=== PATIENT | male | born 1940 | race Caucasian/White ===

== ENCOUNTER 2016-06-06 09:33 | Inpatient (IN) ==
[2016-06-06] MEDS ORDERED: SODIUM CHLORIDE 0.9% 1,000 ML IV STA (09:58)
--- NOTE | 2016-06-06 10:03 | Emergency Department Note ---
IMalcolm Meredith, am scribing for, and in the presence of, Ang Fajardo MD 10: 01. Tana Edgar James D, MD, personally performed the services described in this documentation, ascribed by Maria Esther Fowler in my presence, and it is both accurate and complete . Arrival - Arrival Chief Complaint: Weakness Stated Complaint: DEHYRDATED SENT BY [facility] ED Nursing Triage Note: PT SENT BY DR WEISS FOR EVAL FOR WEAKNESS AND DEHYDRATION. REPORTS DECREASED PO INTAKE ALL WEEK. REPORTS VERY LITTLE URINE OUTPUT AND CONSTIPATION X1 WEEK. Mode of Arrival: Wheelchair Limitations: No Limitations Source: Patient, Old Records Reviewed, RN Notes Reviewed Time Seen by Provider: 06/06/16 09:58 - History of Present Illness HPI Narrative: Pt is a 75 y/o white male sent to the ED from Dr. Weiss's office for further evaluation of generalized weakness and dehydration. states that pt has had decreased PO intake, decreased urine output, and constipation for the past week. Pt has had difficulty swallowing and often coughs while trying to eat. states he has had significant weight loss. He has a history of anxiety, TIA , Parkinson's Disease, thyroid disorder, asthma, bronchitis, COPD, prostate cancer, GI bleed, Gan's esophagus, GERD, and right arm contracture. Onset (ago): week(s) Allergies/Adverse Reactions: Allergies Allergy/AdvReac Type Severity Reaction Status Date / Time metoclopramide [From Reglan] Allergy Intermediate RASH, itch Verified 06/06/16 09:46 Amoxicillin [From Augmentin] Allergy Unknown/Unable Verified 06/06/16 09:46 to obtain clavulanic acid Allergy Unknown/Unable Verified 06/06/16 09:46 [From Augmentin] to obtain levofloxacin [From Levaquin] AdvReac Severe ruptured Verified 06/06/16 09:46 bilat achilles tendon Home Medications: Home Medications Medication Instructions Recorded Confirmed Type Benztropine Tab [Cogentin Tab] 1 mg PO BID 09/10/14 06/06/16 History Cholecalciferol [Vitamin D3] 1,000 unit PO DAILY 09/10/14 06/06/16 History Cyanocobalamin Tab [Vitamin B12 1,000 mcg PO DAILY 09/10/14 06/06/16 History Tab] L.acidoph & Paracasei,B.lactis 1 each PO DAILY 09/10/14 06/06/16 History [Probiotic] Pantoprazole Tab [Protonix Tab] 40 mg PO DAILY 09/10/14 06/06/16 History guaiFENesin ER TAB [Mucinex] 600 mg PO DAILY 09/10/14 06/06/16 History Albuterol Neb [Proventil Neb] 2.5 mg RESP TX BID 09/22/14 06/06/16 History Azithromycin 250 mg PO MOWEFR 09/22/14 06/06/16 History Budesonide/Formoterol 160-4.5 2 puff INH BID 09/22/14 06/06/16 History [Symbicort 160-4.5] Aspirin EC Tab 81 mg PO DAILY 12/22/15 06/06/16 History Citalopram [CeleXA] 40 mg PO DAILY 06/06/16 06/06/16 History Levothyroxine Tab [Synthroid Tab] 100 mcg PO DAILY@0700 06/06/16 06/06/16 History Montelukast Tab [Singulair Tab] 10 mg PO DAILY 06/06/16 06/06/16 History Multivitamin [Multivitamins] 1 each PO DAILY 06/06/16 06/06/16 History Trihexyphenidyl [Artane] 2 mg PO TID 06/06/16 06/06/16 History Review of System - Review of System 12 point system: reviewed and no additional remarkable complaints except as stated - Review of System Constitutional: Present: as per HPI, weakness, weight loss Gastrointestinal: Present: as per HPI, constipation, other (decreased PO intake ; difficulty swallowing) Genitourinary male: Present: as per HPI, other (decreased urinary output) Medical,Surgical,& Family Hx - Medical History Psychological: History of: Anxiety Disorders Neurology: History of: Parkinson's Disease, TIA No history of: Seizures HEENT: History of: Ear Problem (HEARING AIDES), Eye Problem (cataracts) Endocrine: History of: Thyroid Disorder Respiratory: History of: Asthma, Bronchitis (bronchiectisis), COPD, Respiratory Problems (DR. RIVERS) Genitourinary: History of: Prostate Problems (cancer), Genitourinary Cancer ( PROSTATE) Gastrointestinal: History of: GERD, Gastrointestinal Bleed, GI Problems (HX OF GAN'S ESOPHAGUS, dysphagia) No history of: Hepatitis, Liver Problems Musculoskeletal: History of: Musculoskeletal Problems (right arm contractues,) Hematology: No history of: Anemia, Blood Transfusion Reaction Other: History of: Cancer (prostate) No history of: Anesthesia Reactions - Surgical History Cardiac Surgeries: Patient Denies: Cardiac Catheterization Thoracic Surgeries: Patient denies;: Organ Transplant HEENT Surgeries: Surgical HX of: Eye Surgery (LT CATARACT/FOR RT 11/15/14) Patient denies: Thyroid Surgery, Tonsilectomy & Adenoidectomy Abdominal Surgeries: Surgical HX of: Abdominal Surgery (patient's had 2 Rodolfo fundoplication's.), Cholecystectomy, Colonoscopy, EGD Patient denies: Hernia Repair Reproductive Surgeries: Surgical HX of;: Genitourinary Surgery, Prostate Surgery Patient denies;: Vasectomy Orthopedic Surgeries: Patient denies;: Orthopedic Surgery - Family History Family History: Reports;: Family Heart Disease, Family Hypertension, Family Stroke - Social History Smoking Status: Never smoker Frequency of Alcohol Use: None Type of Drug Use: None Exam Physical Examination: GENERAL: This is an emaciated white male in no apparent distress. VITAL SIGNS: Temperature: 98.0, Pulse: 65, Respirations: 16, Blood pressure: 128 /71, O2 Saturation: 97 HEENT: Head is normocephalic and atraumatic. Pupils are equally round and reactive to light. Extraocular movement are intact. Temporal wasting and sunken orbits bilaterally. Dry mucous membranes. NECK: Neck is soft and supple without tenderness. There are no masses. There is no lymphadenopathy. LUNGS: Lungs are clear to auscultation bilaterally. Chest rises symmetrically. There is no chest wall tenderness. CV: Heart is regular rate and rhythm without murmurs, rubs, or gallops. ABDOMEN: Abdomen is soft, non-tender to palpation. There are no abnormal masses palpated. There is no organomegaly. Bowel sounds are present and active. SKIN: Skin is warm and dry. No rash. EXTREMITIES: Patient has full range of motion without tenderness. There is no pedal edema. NEUROLOGIC: Awake, alert, and oriented x4. Cranial nerves II through XII are grossly intact. 3 per second tremors and cog wheeling. PSYCHIATRIC: Normal affect. Normal mood. Vital Signs: Vital Signs Temperature 98.0 F 06/06/16 09:38 Pulse Rate 65 06/06/16 10:24 Respiratory Rate 20 06/06/16 10:24 Blood Pressure 130/75 06/06/16 10:24 O2 Sat by Pulse Oximetry 97 06/06/16 10:24 Course - Consultations Consultation #1: Discussed with hospitalist. Patient will be admitted to their service. Time: 11:41 Results - Labs CBC & BMP: 06/06/16 10:06 06/06/16 10:06 Lab Results: I have reviewed the patients labs Labs: Laboratory Tests 06/06/16 10:06 WBC 7.1 RBC 4.19 Hgb 13.6 L Hct 40.6 L Plt Count 209 MPV 9.4 L Lymph % (Auto) 19.0 L Laboratory Tests 06/06/16 06/06/16 10:06 10:06 Sodium 140 Potassium 4.4 Chloride 103 Carbon Dioxide 27 BUN 20 H Creatinine 0.80 BUN/Creatinine Ratio 25.00 H AST 54 H Total Protein 6.0 L Albumin 3.2 L Prealbumin 17.4 L Laboratory Tests 06/06/16 10:06 Urine pH 6.0 Ur Specific Ethan 1.017 Urine Ketones 20 Urine Blood Moderate Urine Urobilinogen < 2.0 H Urine RBC 48 Urine WBC <1 Ur Squamous Epith Cells Occasional Calcium Oxalate Crystal Occasional Urine Bacteria Occasional Urine Mucus Occasional - Diagnostic Findings Procedure: Chest x-ray: report reviewed by me (Exacerbation of airways disease, with underlying COPD. ) Disposition Clinical Impression: Parkinsons, Parkinson's disease dementia, Dehydration, Protein malnutrition Case discussed with: patient, patient's family Disposition: Still a Patient Condition: Stable Time of Disposition: 11:40
[2016-06-06 10:14] LABS: Basophils % 0.3 % (0.0-0.8); Eosinophils # 0.1 10*3/uL (0.0-0.87); Hematocrit 40.6 VOL% (42.0-52.0); Hemoglobin 13.6 GM/DL (14.0-18.0); Immature Granulocytes % 0.4 %; Immature Granulocytes Absolute 0.03 #; Lymphocytes # 1.4 10*3/uL (1.4-4.0); Mean Corpuscular HGB Conc 33.5 GM/DL (32-36); Mean Corpuscular Hemoglobin 33 PG (27-34); Mean Corpuscular Volume 96.9 FL (87-102); Mean Platelet Volume 9.4 FL (9.6-12.0); Monocytes # 0.7 10*3/uL (0.11-0.8); Monocytes % 9.2 % (1.7-12.7); Neutrophils # 4.9 10*3/uL (1.4-7.4); Neutrophils % 69.1 % (38.7-73.9); Platelet Count 209 T/CUMM (130-400); Red Blood Count 4.19 MC/CUMM (3.8-5.5); Red Cell Distribution Width 13.5 % (9.3-17.3); White Blood Count 7.1 T/CUMM (4-12)
--- NOTE | 2016-06-06 10:26 | CT Report ---
CT head/brain wo con Indication: Generalized weakness. CT BRAIN WITHOUT CONTRAST DLP: 9:15 mGy*cm Comparison: 09/10/2014. Date of admission: 06/06/2016. Technique: Axial noncontrast CT images of the brain were obtained. Findings: No acute hemorrhage, mass or mass effect. Generalized atrophy and patchy periventricular white matter hypodensity is present throughout both convexities. Cortical miugel-white junction and structures of the basal ganglia are well-defined. No bone lesions are shown. Internal auditory canals are symmetric. Mild sphenoid sinus disease is present. The other visualized sinuses and mastoid air cells are clear. Impression: No acute intracranial pathology. Generalized atrophy and changes consistent with microvascular disease. Minimal sphenoid sinus disease. No change from earlier. PROCEDURE INTERPRETED AT [facility] DEPARTMENT OF RADIOLOGY Final Report Signed by: Doc Mcgraw M.D.
--- NOTE | 2016-06-06 10:30 | XRay Report ---
XR chest 2V Indication: Generalized weakness. Chest 2 views: Comparison 06/30/2015. Heart size and mediastinal contours remain normal. Scattered calcified granulomata are unchanged as well. Lungs remain hyperinflated but there is a general increased interstitial prominence present diffusely, with areas of peribronchial thickening and cuffing. No focal pneumonia is seen at this time. Exaggerated thoracic kyphosis is stable. IMPRESSION: Exacerbation of airways disease, with underlying COPD. PROCEDURE INTERPRETED AT [facility] DEPARTMENT OF RADIOLOGY Final Report Signed by: Doc Mcgraw M.D.
[2016-06-06 10:50] LABS: Albumin 3.2 G/DL (3.4-5.0); Bilirubin,Total 0.6 MG/DL (0.2-1.0); Calcium 8.6 MG/DL (8.5-10.1); Osmolality,Calculated 280.4 MOS/KG (273-304); Potassium 4.4 MMOL/L (3.5-5.1)
[2016-06-06 11:01] LABS: Apearance,Urine CLEAR (Clear); Bacteria,Urine Occasional /HPF (Few); Bilirubin,Urine Negative (Negative); Blood, Urine Moderate mg/dL (Negative); Calcium Oxalate Crystals,Urine Occasional /HPF (Few); Glucose,Urine (UA) Negative (Negative); Ketones,Urine 20 mg/dL (Negative); Mucus,Urine Occasional /LPF (Occasional); Nitrite,Urine Negative (Negative); Protein,Urine Negative; RBC,Urine 48 /HPF (0-4); Squamous Epithelial Cell,Urine Occasional /HPF (0-10); Urine Color Yellow (Yellow); Urine Specific Gravity 1.017 (1.001-1.035); Urine Urobilinogen < 2.0 EU/DL (0.2-1.0); WBC,Urine <1 /HPF (0-6)
[2016-06-06] MEDS ORDERED: ONDANSETRON 4 MG/2 ML VIAL IV PRN (12:14)
--- NOTE | 2016-06-06 12:44 | Hospitalist History & Physical ---
Assessment and Plan - Time spent with patient Time spent with patient: Greater than 30 minutes (due to assessment, plan and documentation.) (1) Constipation Status: Acute Assessment and plan: admit to floor / NS at 75 cc/hr KUB Current Visit: Yes (2) Protein malnutrition Status: Acute Current Visit: Yes (3) Asthma Status: Acute Current Visit: No (4) Bronchiectasis Status: Acute Current Visit: No Qualifiers: Bronchiectasis type: with acute lower respiratory infection Qualified Code( s): J47.0 - Bronchiectasis with acute lower respiratory infection (5) Hypothyroidism Status: Acute Current Visit: No (6) Parkinsons disease Status: Chronic Current Visit: No History of Present Illness Chief complaint: sent from Dariel's office for dehydration. History of present illness: Mr. Lorenzo is a 75 year old male who was sent over from Dr. Vieira's office today for dehydration, constipation. History is obtained from his and sister in law. He has a past medical history significant for Parkinson's disease, TIA, tremor (unknown per if related to an old horse accident or his Parkinson's disease), asthma, bronchiectasis and COPD followed by Dr. Eugene Beck. He also has a hx of GERD and Gan's disease followed by Dr. Falcon. He is on Synthroid for hypothyroidism. PSH includes: anand fundoplication x 2, prostate cancer treated with surgery and bilateral cataract surgery. His and sister in law state that he has not been able to have a BM for about 1 week now. Mr. Lorenzo denies any abdominal pain, nausea or vomiting. No fever, no white count at this time. His electrolytes are normal at present. His states that he has not been eating/drinking good for "a while now" and that he has lost approximately 40 lbs in the past year and a half. They state that he sat on the toilet for hours yesterday trying to have a BM, to the point that his feet were swollen bilaterally. He doesn't speak much but will answer questions, when directly spoken to. Denies any blood in stool with last BM. CXR and Head CT were negative in ER. I have ordered a KUB and the report is pending at this time. We will admit and begin on 04/29 NS at 75 cc/ hr for hydration. He lives at home with his and requires assistance. Further plan and addendum to follow by Dr. Kalpana Mckeon. Home Medications Medication Instructions Recorded Confirmed Type Benztropine Tab [Cogentin Tab] 1 mg PO BID 09/10/14 06/06/16 History Cholecalciferol [Vitamin D3] 1,000 unit PO DAILY 09/10/14 06/06/16 History Cyanocobalamin Tab [Vitamin B12 1,000 mcg PO DAILY 09/10/14 06/06/16 History Tab] L.acidoph & Paracasei,B.lactis 1 each PO DAILY 09/10/14 06/06/16 History [Probiotic] Pantoprazole Tab [Protonix Tab] 40 mg PO DAILY 09/10/14 06/06/16 History guaiFENesin ER TAB [Mucinex] 600 mg PO DAILY 09/10/14 06/06/16 History Albuterol Neb [Proventil Neb] 2.5 mg RESP TX BID 09/22/14 06/06/16 History Azithromycin 250 mg PO MOWEFR 09/22/14 06/06/16 History Budesonide/Formoterol 160-4.5 2 puff INH BID 09/22/14 06/06/16 History [Symbicort 160-4.5] Aspirin EC Tab 81 mg PO DAILY 12/22/15 06/06/16 History Citalopram [CeleXA] 40 mg PO DAILY 06/06/16 06/06/16 History Levothyroxine Tab [Synthroid Tab] 100 mcg PO DAILY@0700 06/06/16 06/06/16 History Montelukast Tab [Singulair Tab] 10 mg PO DAILY 06/06/16 06/06/16 History Multivitamin [Multivitamins] 1 each PO DAILY 06/06/16 06/06/16 History Trihexyphenidyl [Artane] 2 mg PO TID 06/06/16 06/06/16 History Allergies Allergy/AdvReac Type Severity Reaction Status Date / Time metoclopramide [From Reglan] Allergy Intermediate RASH, itch Verified 06/06/16 09:46 Amoxicillin [From Augmentin] Allergy Unknown/Unable Verified 06/06/16 09:46 to obtain clavulanic acid Allergy Unknown/Unable Verified 06/06/16 09:46 [From Augmentin] to obtain levofloxacin [From Levaquin] AdvReac Severe ruptured Verified 06/06/16 09:46 bilat achilles tendon Medical,Surgical,& Family Hx - Medical History Psychological: History of: Anxiety Disorders Neurology: History of: Parkinson's Disease, TIA No history of: Seizures HEENT: History of: Ear Problem (HEARING AIDES), Eye Problem (cataracts) Endocrine: History of: Thyroid Disorder Respiratory: History of: Asthma, Bronchitis (bronchiectisis), COPD, Respiratory Problems (DR. BECK) Genitourinary: History of: Prostate Problems (cancer), Genitourinary Cancer ( PROSTATE) Gastrointestinal: History of: GERD, Gastrointestinal Bleed, GI Problems (HX OF GAN'S ESOPHAGUS, dysphagia) No history of: Hepatitis, Liver Problems Musculoskeletal: History of: Musculoskeletal Problems (right arm contractues,) Hematology: No history of: Anemia, Blood Transfusion Reaction Other: History of: Cancer (prostate) No history of: Anesthesia Reactions - Surgical History Cardiac Surgeries: Patient Denies: Cardiac Catheterization Thoracic Surgeries: Patient denies;: Organ Transplant HEENT Surgeries: Surgical HX of: Eye Surgery (LT CATARACT/FOR RT 11/15/14) Patient denies: Thyroid Surgery, Tonsilectomy & Adenoidectomy Abdominal Surgeries: Surgical HX of: Abdominal Surgery (patient's had 2 Rodolfo fundoplication's.), Cholecystectomy, Colonoscopy, EGD Patient denies: Hernia Repair Reproductive Surgeries: Surgical HX of;: Genitourinary Surgery, Prostate Surgery Patient denies;: Vasectomy Orthopedic Surgeries: Patient denies;: Orthopedic Surgery - Family History Family History: Reports;: Family Heart Disease, Family Hypertension, Family Stroke - Social History Smoking Status: Never smoker Frequency of Alcohol Use: None Type of Drug Use: None Marital Status: Lives With:: Spouse Functional capacity: uses cane/walker - Constitutional Constitutional: Absent: chills, fever(s), weakness - EENT Eyes: Absent: blurry vision, diplopia Ears: Absent: decreased hearing, tinnitus Nose, mouth and throat: Present: dysphagia. Absent: headache(s) - Cardiovascular Cardiovascular: Present: edema (now resolved, had yesterday). Absent: chest pain at rest, dyspnea on exertion - Respiratory Respiratory: Absent: dyspnea, hemoptysis - Gastrointestinal Gastrointestinal: Present: constipation. Absent: abdominal pain, melena, nausea , vomiting - Genitourinary Genitourinary: Absent: difficulty urinating, flank pain, hematuria - Musculoskeletal Musculoskeletal: Absent: back pain, joint swelling - Neurological Neurological: Absent: confusion, dizziness - Psychiatric Psychiatric: Absent: anxiety, confusion, depression - Endocrine Endocrine: Absent: cold intolerance, heat intolerance - Hematologic/Lymphatic Hematologic/Lymphatic: Absent: easy bleeding, easy bruising Exam - Constitutional General appearance: no acute distress, under weight - Head Head exam: Present: normal inspection, normocephalic - Eye Eye exam: Present: EOMI. Absent: scleral icterus Pupils: Present: TAVO, normal accommodation - ENT ENT exam: Present: normal exam, normal oropharynx - Neck Neck exam: Present: normal inspection. Absent: lymphadenopathy - Respiratory Respiratory exam: Present: clear to auscultation bilaterally. Absent: accessory muscle use - Cardiovascular Cardiovascular exam: Present: regular rate and rhythm. Absent: carotid bruit - GI/Abdominal GI/Abdominal exam: Present: hypoactive bowel sounds, soft. Absent: tenderness - Extremities Exam Extremities exam: Present: normal inspection. Absent: edema - Back Exam Back exam: Present: normal inspection. Absent: muscle spasm - Neurological Exam Neurological exam: Present: alert, oriented X3 - Psychiatric Psychiatric exam: Present: normal affect, normal mood - Skin Skin exam: Present: normal color, warm, dry, intact Results - Labs CBC & BMP: 06/06/16 10:06 06/06/16 10:06 Lab Results: I have reviewed the past 24 hour labs - Diagnostic Findings Procedure: Chest x-ray: report reviewed by me (negative for acute pathology), KUB x-ray: pending, CT: report reviewed by me (head: negative for acute pathology)
--- NOTE | 2016-06-06 12:50 | XRay Report ---
History: Abdominal pain Date: 06/06/2016 Study: KUB Comparison exam: No previous There is a large amount of stool in the colon, suggesting constipation. There is no gross mass lesion. Surgical clips over the right upper abdomen suggest previous cholecystectomy. There are midline abdominal surgical yimi. There is mild scattered degenerative disc narrowing and spondylosis of the lumbar spine. Impression: Large amount of stool in the colon suggesting constipation. No acute process otherwise PROCEDURE INTERPRETED AT [facility] DEPARTMENT OF RADIOLOGY Final Report Signed by: Dr. Alba Falcon
[2016-06-06] MEDS: MULTIVITAMIN (CENTRUM) TABLET PO SCH (14:26)
[2016-06-06] MEDS: SODIUM CHLORIDE 0.45% 1,000 ML IV SCH (14:42)
[2016-06-06] MEDS ORDERED: TRIHEXYPHENIDYL 2 MG TABLET PO SCH (15:00)
[2016-06-06] MEDS: ENOXAPARIN 40 MG/0.4 ML SYRINGE SUBCUT SCH (16:58)
[2016-06-06] MEDS: BENZTROPINE 1 MG TABLET PO SCH ×2 (16:59→19:04)
[2016-06-06] MEDS ORDERED: BENZTROPINE 1 MG TABLET PO SCH (18:00)
[2016-06-06] MEDS: TRIHEXYPHENIDYL 2 MG PO SCH ×2 (19:05→21:32)
[2016-06-06] MEDS: LACTULOSE 20 GM/30 ML UDCUP PO PRN (19:20)
[2016-06-06] MEDS: ALBUTEROL 2.5 MG/3 ML NEB RESP TX SCH (20:40)
[2016-06-06] MEDS ORDERED: ALBUTEROL 2.5 MG/3 ML NEB RESP TX SCH (21:00)
[2016-06-06] MEDS: BUDESONIDE/FORMOTEROL 160-4.5 INHALER 6 GM INH SCH (21:32)
[2016-06-07] MEDS: SODIUM CHLORIDE 0.45% 1,000 ML IV SCH ×2 (02:19→03:51)
[2016-06-07 04:33] LABS: Basophils % 0.4 % (0.0-0.8); Eosinophils # 0.1 10*3/uL (0.0-0.87); Eosinophils % 2.2 % (0.00-10.9); Hemoglobin 11.1 GM/DL (14.0-18.0); Immature Granulocytes % 0.6 %; Immature Granulocytes Absolute 0.03 #; Lymphocytes # 1.2 10*3/uL (1.4-4.0); Lymphocytes % 23.1 % (21.2-54.2); Mean Corpuscular HGB Conc 33.6 GM/DL (32-36); Mean Corpuscular Hemoglobin 32 PG (27-34); Mean Corpuscular Volume 96.2 FL (87-102); Mean Platelet Volume 9.3 FL (9.6-12.0); Monocytes # 0.5 10*3/uL (0.11-0.8); Monocytes % 10.1 % (1.7-12.7); Neutrophils # 3.2 10*3/uL (1.4-7.4); Neutrophils % 63.6 % (38.7-73.9); Platelet Count 189 T/CUMM (130-400); Red Blood Count 3.43 MC/CUMM (3.8-5.5); Red Cell Distribution Width 13.4 % (9.3-17.3); White Blood Count 5.1 T/CUMM (4-12)
[2016-06-07 05:04] LABS: Albumin 2.5 G/DL (3.4-5.0); Bilirubin,Total 0.9 MG/DL (0.2-1.0); Calcium 7.7 MG/DL (8.5-10.1); Osmolality,Calculated 280.1 MOS/KG (273-304); Potassium 3.8 MMOL/L (3.5-5.1); Total Protein 4.7 G/DL (6.4-8.3)
[2016-06-07] MEDS: LEVOTHYROXINE 100 MCG TABLET PO SCH (06:54)
[2016-06-07] MEDS: ALBUTEROL 2.5 MG/3 ML NEB RESP TX SCH ×2 (07:23→19:09)
[2016-06-07] MEDS ORDERED: PANTOPRAZOLE 40 MG TABLET PO SCH (09:00)
--- NOTE | 2016-06-07 11:29 | Hospitalist Progress Note ---
Assessment and Plan (1) Corticobasal degeneration Status: Acute Assessment and plan: 1)poor swallowing- speech to see and we will try diet consisitency they recommend. May need PEG depending on how he does and if he is able to meet his calorie needs. 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 3)constipation- lactulose and enemas as needed. 4)malnutrition 5)h/o COPD- well compensated Current Visit: Yes (2) Hypothyroidism Status: Acute Current Visit: No (3) Dehydration Status: Acute Current Visit: Yes (4) Protein malnutrition Status: Acute Current Visit: Yes (5) Constipation Status: Acute Current Visit: Yes Hospitalist: Subjective Interval history: Mr Lorenzo is feeling a little stronger this morning. His and sister in law are here with him. 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 They note that he chokes on liquids. Speech has not evaluated his swallow yet. They have considered PEG tube and don't want one unless there is no safe way to feed him. He denies pain. He has had a BM following enema and is more comfortable, may want to repeat enema later today. Exam - Constitutional Vitals: Period Temp Pulse Resp BP Sys/Nunn Pulse Ox Last 24 Hr 97.4 F-99.2 F 56-85 16-20 114-200/63-88 93-99 General appearance: no acute distress, under weight - Eye Eye exam: Present: EOMI. Absent: scleral icterus - Respiratory Respiratory exam: Present: clear to auscultation bilaterally - Cardiovascular Cardiovascular exam: Present: regular rate and rhythm - GI/Abdominal GI/Abdominal exam: Present: normal bowel sounds, soft. Absent: tenderness - Extremities Exam Extremities exam: Absent: edema Results - Labs CBC & BMP: 06/07/16 04:11 06/07/16 04:11 Lab Results: I have reviewed the past 24 hour labs
[2016-06-07] MEDS: TRIHEXYPHENIDYL 2 MG PO SCH ×3 (12:15→21:09)
[2016-06-07] MEDS: ASPIRIN EC 81 MG TABLET PO SCH (12:16)
[2016-06-07] MEDS: MONTELUKAST 10 MG TABLET PO SCH (12:16)
[2016-06-07] MEDS: PANTOPRAZOLE 40 MG TABLET PO SCH (12:17)
[2016-06-07] MEDS: CITALOPRAM 40 MG TABLET PO SCH (12:17)
[2016-06-07] MEDS: CHOLECALCIFEROL 1,000 UNIT TABLET PO SCH (12:18)
[2016-06-07] MEDS: CYANOCOBALAMIN 500 MCG TABLET PO SCH (12:19)
[2016-06-07] MEDS: LACTOBACILLUS RHAMNOSUS GG CAPSULE PO SCH (12:21)
[2016-06-07] MEDS: AZITHROMYCIN 250 MG TABLET PO SCH (12:23)
[2016-06-07] MEDS: MULTIVITAMIN (CENTRUM) TABLET PO SCH (12:24)
[2016-06-07] MEDS: BUDESONIDE/FORMOTEROL 160-4.5 INHALER 6 GM INH SCH ×2 (12:30→21:09)
[2016-06-07] MEDS: BENZTROPINE 1 MG TABLET PO SCH ×2 (12:37→21:09)
[2016-06-07] MEDS: ENOXAPARIN 40 MG/0.4 ML SYRINGE SUBCUT SCH (15:34)
[2016-06-07] MEDS: LACTULOSE 20 GM/30 ML UDCUP PO PRN (15:41)
[2016-06-08] MEDS: LEVOTHYROXINE 100 MCG TABLET PO SCH (06:56)
[2016-06-08] MEDS: ALBUTEROL 2.5 MG/3 ML NEB RESP TX SCH ×2 (08:24→19:20)
[2016-06-08] MEDS: CYANOCOBALAMIN 500 MCG TABLET PO SCH (09:18)
[2016-06-08] MEDS: CITALOPRAM 40 MG TABLET PO SCH (09:18)
[2016-06-08] MEDS: MONTELUKAST 10 MG TABLET PO SCH (09:19)
[2016-06-08] MEDS: MULTIVITAMIN (CENTRUM) TABLET PO SCH (09:19)
[2016-06-08] MEDS: LACTOBACILLUS RHAMNOSUS GG CAPSULE PO SCH (09:19)
[2016-06-08] MEDS: ASPIRIN EC 81 MG TABLET PO SCH (09:19)
[2016-06-08] MEDS: BENZTROPINE 1 MG TABLET PO SCH ×2 (09:19→18:28)
[2016-06-08] MEDS: PANTOPRAZOLE 40 MG TABLET PO SCH (09:19)
[2016-06-08] MEDS: CHOLECALCIFEROL 1,000 UNIT TABLET PO SCH (09:19)
[2016-06-08] MEDS: TRIHEXYPHENIDYL 2 MG PO SCH ×3 (09:32→21:48)
--- NOTE | 2016-06-08 09:33 | Hospitalist Progress Note ---
Assessment and Plan (1) Parkinson's disease dementia Status: Acute Assessment and plan: No change in condition needs IV fluids we'll look her medicines make sure that were treating constipation appropriately Current Visit: Yes (2) Constipation Status: Acute Current Visit: Yes (3) Corticobasal degeneration Status: Acute Current Visit: Yes Hospitalist: Subjective Interval history: Patient complains of constipation won't eat does not want PEG tube Exam - Constitutional Vitals: Period Temp Pulse Resp BP Sys/Nunn Pulse Ox Last 24 Hr 96.4 F-97.6 F 50-90 14-20 121-164/60-74 94-99 Exam: Constitutional: General appearance is normal Eyes: Pupils equal round react to light and accommodation conjunctiva and lids are normal Neck: supple without masses Respiratory: Respiratory effort is normal. Lungs are clear to auscultation. Resonant to percussion. Cardiac: Regular rate and rhythm without murmur rub or gallop. PMI at the midclavicular line by palpation. Carotid arteries 2+ palpation no bruits GI: Bowel sounds normoactive, no tenderness or rebound tenderness, no organomegaly Extremities: no clubbing cyanosis or edema Results - Labs CBC & BMP: 06/07/16 04:11 06/07/16 04:11
[2016-06-08] MEDS: BUDESONIDE/FORMOTEROL 160-4.5 INHALER 6 GM INH SCH ×2 (10:47→21:48)
[2016-06-08] MEDS: SODIUM CHLORIDE 0.45% 1,000 ML IV SCH (10:48)
[2016-06-08] MEDS: ENOXAPARIN 40 MG/0.4 ML SYRINGE SUBCUT SCH (12:03)
[2016-06-08] MEDS: LACTULOSE 20 GM/30 ML UDCUP PO PRN (18:34)
[2016-06-09] MEDS: SODIUM CHLORIDE 0.45% 1,000 ML IV SCH ×2 (05:19→07:00)
[2016-06-09] MEDS: LEVOTHYROXINE 100 MCG TABLET PO SCH (07:05)
[2016-06-09] MEDS: ALBUTEROL 2.5 MG/3 ML NEB RESP TX SCH ×2 (07:30→20:39)
--- NOTE | 2016-06-09 09:18 | Pulmonology Progress Note ---
Pulmonary - PN: Subj Interval history: After starting IV fluids yesterday patient started eating and 8 all day yesterday the big issue now is constipation Exam (Progress Note) - Constitutional Vitals: Period Temp Pulse Resp BP Sys/Nunn Pulse Ox Last 24 Hr 97.3 F-98.0 F 55-69 13-22 129-168/68-84 93-99 Exam: Constitutional: General appearance is normal Eyes: Pupils equal round react to light and accommodation conjunctiva and lids are normal Neck: supple without masses Respiratory: Respiratory effort is normal. Lungs are clear to auscultation. Resonant to percussion. Cardiac: Regular rate and rhythm without murmur rub or gallop. PMI at the midclavicular line by palpation. Carotid arteries 2+ palpation no bruits GI: Bowel sounds normoactive, no tenderness or rebound tenderness, no organomegaly Extremities: no clubbing cyanosis or edema Results - Labs CBC & BMP: 06/07/16 04:11 06/07/16 04:11 Assessment and Plan (1) Parkinson's disease dementia Status: Acute Assessment and plan: No change in condition needs IV fluids we'll look her medicines make sure that were treating constipation appropriately 2/ patient is doing better there is no new issues we'll continue to see how he eats weaning fixes constipation today he can go home tomorrow Current Visit: Yes (2) Constipation Status: Acute Current Visit: Yes (3) Corticobasal degeneration Status: Acute Current Visit: Yes
[2016-06-09] MEDS: BENZTROPINE 1 MG TABLET PO SCH ×2 (09:44→17:22)
[2016-06-09] MEDS: CYANOCOBALAMIN 500 MCG TABLET PO SCH (09:44)
[2016-06-09] MEDS: PANTOPRAZOLE 40 MG TABLET PO SCH (09:44)
[2016-06-09] MEDS: MULTIVITAMIN (CENTRUM) TABLET PO SCH (09:44)
[2016-06-09] MEDS: CITALOPRAM 40 MG TABLET PO SCH (09:44)
[2016-06-09] MEDS: ASPIRIN EC 81 MG TABLET PO SCH (09:44)
[2016-06-09] MEDS: DOCUSATE SODIUM 100 MG CAPSULE PO PRN (09:44)
[2016-06-09] MEDS: CHOLECALCIFEROL 1,000 UNIT TABLET PO SCH (09:45)
[2016-06-09] MEDS: MONTELUKAST 10 MG TABLET PO SCH (09:45)
[2016-06-09] MEDS: LACTOBACILLUS RHAMNOSUS GG CAPSULE PO SCH (09:45)
[2016-06-09] MEDS: TRIHEXYPHENIDYL 2 MG PO SCH ×3 (09:45→20:12)
[2016-06-09] MEDS: LACTULOSE 20 GM/30 ML UDCUP PO PRN ×2 (09:45→14:31)
[2016-06-09] MEDS: BUDESONIDE/FORMOTEROL 160-4.5 INHALER 6 GM INH SCH ×2 (09:48→20:12)
[2016-06-09] MEDS: ENOXAPARIN 40 MG/0.4 ML SYRINGE SUBCUT SCH (12:34)
[2016-06-10] MEDS: SODIUM CHLORIDE 0.45% 1,000 ML IV SCH ×2 (04:53→22:22)
[2016-06-10] MEDS: LEVOTHYROXINE 100 MCG TABLET PO SCH (06:34)
[2016-06-10] MEDS: ALBUTEROL 2.5 MG/3 ML NEB RESP TX SCH ×2 (08:13→19:30)
[2016-06-10] MEDS: CYANOCOBALAMIN 500 MCG TABLET PO SCH (08:35)
[2016-06-10] MEDS: CITALOPRAM 40 MG TABLET PO SCH (08:36)
[2016-06-10] MEDS: BENZTROPINE 1 MG TABLET PO SCH ×2 (08:38→18:31)
[2016-06-10] MEDS: CHOLECALCIFEROL 1,000 UNIT TABLET PO SCH (08:38)
[2016-06-10] MEDS: ASPIRIN EC 81 MG TABLET PO SCH (08:38)
[2016-06-10] MEDS: MONTELUKAST 10 MG TABLET PO SCH (08:38)
[2016-06-10] MEDS: AZITHROMYCIN 250 MG TABLET PO SCH (08:38)
[2016-06-10] MEDS: LACTOBACILLUS RHAMNOSUS GG CAPSULE PO SCH (08:38)
[2016-06-10] MEDS: TRIHEXYPHENIDYL 2 MG PO SCH ×3 (08:39→20:51)
[2016-06-10] MEDS: MULTIVITAMIN (CENTRUM) TABLET PO SCH (09:35)
[2016-06-10] MEDS: PANTOPRAZOLE 40 MG TABLET PO SCH (09:35)
[2016-06-10] MEDS: BUDESONIDE/FORMOTEROL 160-4.5 INHALER 6 GM INH SCH ×2 (09:35→20:51)
[2016-06-10] MEDS: ENOXAPARIN 40 MG/0.4 ML SYRINGE SUBCUT SCH (12:13)
--- NOTE | 2016-06-10 13:03 | Gastrointestinal Consult Note ---
Assessment and Plan (1) Dysphagia Status: Acute Assessment and plan: 06/10-Hx of difficulty swallowing with dilation in past, hx of Nisen fundopilication. Now with 40 pd wt loss over last year and a half with difficulty with meats, some solids and at times liquids, pills. Discussed PEG tube placement and questions answered. Family and pt to discuss further. Plan and addendum to follow by Dr Falcon. Current Visit: Yes History of Present Illness Chief complaint: Dysphagia, wt loss History of present illness: Mr. Lorenzo is a 75 year old male who presented to the hospital with onset of dehydration. Pt has a history of Parkinsons disease, TIA, tremors, COPD, GERD and Barretts esophagus. 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 He lives at home with his who cares for him daily. She is at bedside and provides information. Pt contributes minimally to history. Pt was admitted to the hospital after presented to Dr Vieira on 06/06 with dehydration and constipation. Pt is reported to have lost 40 pounds over the last year and a half and takes in very minimal food and liquids daily. He has a history of esophageal stricture with dilation in the past with most recent being in Nov 2015. Pt states that he at times does have trouble swallowing however other times he has no desire to eat. States the dilation did help for a short period of time however he just doesnt want to eat most days. He has not eaten in several days until today he did eat most all of his lunch which consisted of soup. He has a history of Rebeca fundopilication as well x 2 in the past as well as prostate cancer that was surgically treated. He denies any pain with swallowing or abd pain. Denies any nausea or vomiting. He has had some recent constipation. Currenlty receiving Chronulac q 4 and enemas. Last bowel movement 3 days ago. Home Medications Medication Instructions Recorded Confirmed Type Benztropine Tab [Cogentin Tab] 1 mg PO BID 09/10/14 06/06/16 History Cholecalciferol [Vitamin D3] 1,000 unit PO DAILY 09/10/14 06/06/16 History Cyanocobalamin Tab [Vitamin B12 1,000 mcg PO DAILY 09/10/14 06/06/16 History Tab] L.acidoph & Elizabeth Wallace.lactis 1 each PO DAILY 09/10/14 06/06/16 History [Probiotic] Pantoprazole Tab [Protonix Tab] 40 mg PO DAILY 09/10/14 06/06/16 History guaiFENesin ER TAB [Mucinex] 600 mg PO DAILY 09/10/14 06/06/16 History Albuterol Neb [Proventil Neb] 2.5 mg RESP TX BID 09/22/14 06/06/16 History Azithromycin 250 mg PO MOWEFR 09/22/14 06/06/16 History Budesonide/Formoterol 160-4.5 2 puff INH BID 09/22/14 06/06/16 History [Symbicort 160-4.5] Aspirin EC Tab 81 mg PO DAILY 12/22/15 06/06/16 History Citalopram [CeleXA] 40 mg PO BID 06/06/16 06/06/16 History Levothyroxine Tab [Synthroid Tab] 100 mcg PO DAILY@0700 06/06/16 06/06/16 History Montelukast Tab [Singulair Tab] 10 mg PO DAILY 06/06/16 06/06/16 History Multivitamin [Multivitamins] 1 each PO DAILY 06/06/16 06/06/16 History Trihexyphenidyl [Artane] 2 mg PO TID 06/06/16 06/06/16 History Allergies Allergy/AdvReac Type Severity Reaction Status Date / Time metoclopramide [From Reglan] Allergy Intermediate RASH, itch Verified 06/06/16 09:46 Amoxicillin [From Augmentin] Allergy Unknown/Unable Verified 06/06/16 09:46 to obtain clavulanic acid Allergy Unknown/Unable Verified 06/06/16 09:46 [From Augmentin] to obtain levofloxacin [From Levaquin] AdvReac Severe ruptured Verified 06/06/16 09:46 bilat achilles tendon Medical,Surgical,& Family Hx - Medical History Psychological: History of: Anxiety Disorders Neurology: History of: Parkinson's Disease, TIA No history of: Seizures HEENT: History of: Ear Problem (HEARING AIDES), Eye Problem (cataracts) Endocrine: History of: Thyroid Disorder Respiratory: History of: Asthma, Bronchitis (bronchiectisis), COPD, Respiratory Problems (DR. RIVERS) Genitourinary: History of: Prostate Problems (cancer), Genitourinary Cancer ( PROSTATE) Gastrointestinal: History of: GERD, Gastrointestinal Bleed, GI Problems (HX OF GAN'S ESOPHAGUS, dysphagia) No history of: Hepatitis, Liver Problems Musculoskeletal: History of: Musculoskeletal Problems (right arm contractues,) Hematology: No history of: Anemia, Blood Transfusion Reaction Other: History of: Cancer (prostate) No history of: Anesthesia Reactions - Surgical History Cardiac Surgeries: Patient Denies: Cardiac Catheterization Thoracic Surgeries: Patient denies;: Organ Transplant HEENT Surgeries: Surgical HX of: Eye Surgery (LT CATARACT/FOR RT 11/15/14) Patient denies: Thyroid Surgery, Tonsilectomy & Adenoidectomy Abdominal Surgeries: Surgical HX of: Abdominal Surgery (patient's had 2 Rodolfo fundoplication's.), Cholecystectomy, Colonoscopy, EGD Patient denies: Hernia Repair Reproductive Surgeries: Surgical HX of;: Genitourinary Surgery, Prostate Surgery Patient denies;: Vasectomy Orthopedic Surgeries: Patient denies;: Orthopedic Surgery - Family History Family History: Reports;: Family Heart Disease, Family Hypertension, Family Stroke - Social History Smoking Status: Never smoker Frequency of Alcohol Use: None Type of Drug Use: None 12 point system: reviewed and no additional remarkable complaints except as stated - Constitutional Constitutional: Present: as per HPI, weight loss - EENT Eyes: Present: as per HPI Ears: Present: as per HPI Nose, mouth and throat: Present: as per HPI - Cardiovascular Cardiovascular: Present: as per HPI - Respiratory Respiratory: Present: as per HPI - Gastrointestinal Gastrointestinal: Present: as per HPI, constipation, dysphagia, early satiety - Genitourinary Genitourinary: Present: as per HPI - Musculoskeletal Musculoskeletal: Present: as per HPI - Neurological Neurological: Present: as per HPI - Psychiatric Psychiatric: Present: as per HPI - Endocrine Endocrine: Present: as per HPI - Hematologic/Lymphatic Hematologic/Lymphatic: Present: as per HPI Exam - Constitutional Vitals: Period Temp Pulse Resp BP Sys/Nunn Pulse Ox Last 24 Hr 97.4 F-99.8 F 52-65 16-20 121-158/65-88 93-99 General appearance: no acute distress, under weight - Head Head exam: Present: normal inspection, normocephalic - Eye Eye exam: Present: other (lids and conjunctiva unremarakble). Absent: scleral icterus - ENT ENT exam: Present: normal exam, normal oropharynx - Neck Neck exam: Present: normal inspection - Respiratory Respiratory exam: Present: clear to auscultation bilaterally. Absent: rales, rhonchi, wheezes - Cardiovascular Cardiovascular exam: Present: regular rate and rhythm. Absent: diastolic murmur , JVD, systolic murmur - GI/Abdominal GI/Abdominal exam: Present: normal bowel sounds, soft. Absent: ascites, distended, mass, organomegaly, tenderness - Extremities Exam Extremities exam: Present: normal inspection, full ROM - Back Exam Back exam: Present: normal inspection - Neurological Exam Neurological exam: Present: alert, oriented X3 - Psychiatric Psychiatric exam: Present: normal affect, normal mood - Skin Skin exam: Present: normal color, warm, dry Results - Labs CBC & BMP: 06/07/16 04:11 06/07/16 04:11 Lab Results: I have reviewed the past 24 hour labs
--- NOTE | 2016-06-10 15:56 | Physician Query Form ---
CLICK EDIT DOCUMENT TO SELECT QUERY ANSWER --> OK --> SIGN Nadeen Wright RN Clinical Fourth Hand W) [phone] (f) [phone] [email or web address]: Make your selection(s) from the choices in EACH section by typing an "x" and enter comments in the comment section. Please use your independent medical judgment in providing your response. This request does not imply that any particular answer is desired or expected. CLINICAL INDICATORS: (Providers should not edit this section) Height: 5ft 8in Weight: 101 lbs Assistant Real Estate Manager BMI: 15.9 Nutritional supplements: Enlive with all trays Vat Packer notes: Loss of body fat and muscle mass Based on documentation of "acute protein calorie malnutrition", please clarify the severity of the protein calorie malnutrition. Based on the above, which following choice most accurately represents the patient's nutritional status? ( x) Protein calorie malnutrition ( ) mild ( ) moderate (x ) severe ( ) Emaciation due to malnutrition ( ) Underweight ( ) Other, please specify: ( ) Clinically unable to determine Mild Malnutrition (BMI < 18.5, % Normal Body Weight 85-95%) Moderate Malnutrition (BMI < 17, % Normal Body Weight 75-85%) Severe Malnutrition (BMI < 16, % Normal Body Weight < 75%) Source: Mindy COMMENTS: Use of terms such as suspected, likely, or probable (associated with a specific diagnosis that is being evaluated, monitored, or treated as if it exists) are acceptable and can be restated in the discharge summary if not ruled out. MTDD
--- NOTE | 2016-06-10 17:04 | Hospitalist Progress Note ---
Assessment and Plan (1) Dysphagia Status: Acute Assessment and plan: peg tube Current Visit: Yes (2) Bronchiectasis Status: Acute Assessment and plan: stable and chronic Current Visit: No Qualifiers: Bronchiectasis type: with acute lower respiratory infection Qualified Code( s): J47.0 - Bronchiectasis with acute lower respiratory infection (3) Protein malnutrition Status: Acute Assessment and plan: needs peg tube Current Visit: Yes (4) Constipation Status: Acute Assessment and plan: resolved Current Visit: Yes (5) Corticobasal degeneration Status: Acute Assessment and plan: hold asa for now Current Visit: Yes Hospitalist: Subjective Interval history: Patient has cortical basilar degeneration and has difficulty articulating his words or swallowing food. Were concerned about his severe weight loss and dehydration. Asked GI to see him about a PEG tube. is wanting to take him home. Exam - Constitutional Vitals: Period Temp Pulse Resp BP Sys/Nunn Pulse Ox Last 24 Hr 97.4 F-98.4 F 52-65 16-20 121-159/65-76 93-99 Exam: Heart Rate-[deepthi] Lungs-[CTAB] GI-[+bs soft, NT] Ext-[no edema] neuro motor 5/5 but weak, alert and oriented times 1 psych depressed mood and flat affect general no acute distress skin eyes sunken in Results - Labs CBC & BMP: 06/07/16 04:11 06/07/16 04:11 Lab Results: I have reviewed the past 24 hour labs
[2016-06-11] MEDS: SODIUM CHLORIDE 0.45% 1,000 ML IV SCH ×2 (00:06→19:34)
--- NOTE | 2016-06-11 07:38 | Discharge Summary ---
Hospital Course - Hospital Course Hospital Course: Mr. Lorenzo was admitted on 06/06 with constipation, protein malnutrition, hx of asthma and bronchiectasis, hypothyroidism, and Parkinson's disease. He was sent from Dr. Andrey Vieira's office for dehydration and constipation. He has corticobasal degeneration and he is managed by a Physician at [facility] and by Dr. Almodovar. He was having difficulty swallowing and we asked that Speech see for diet consistency recommendations. PEG was discussed. He got enemas and had a BM following that. Dr. Aime Falcon saw in consultation on 06/10 for his dysphagia. Mr. Lorenzo and family agreed to PEG placement. He is for PEG placement today and hopeful discharge after that procedure. - Time spent with patient Time with patient DS: Greater than 30 minutes (due to plan, doc and med rec.) Diagnosis - Discharge Diagnosis (1) Constipation Status: Acute (2) Protein malnutrition Status: Acute (3) Asthma Status: Acute (4) Bronchiectasis Status: Acute (5) Hypothyroidism Status: Acute (6) Parkinsons disease Status: Chronic Discharge Plan - Discharge Medications No Action Pantoprazole Tab [Protonix Tab] 40 mg PO DAILY Benztropine Tab [Cogentin Tab] 1 mg PO BID Cholecalciferol [Vitamin D3] 1,000 unit PO DAILY Cyanocobalamin Tab [Vitamin B12 Tab] 1,000 mcg PO DAILY L.acidoph & Paracasei,B.lactis [Probiotic] 1 each PO DAILY guaiFENesin ER TAB [Mucinex] 600 mg PO DAILY Azithromycin 250 mg PO MOWEFR Albuterol Neb [Proventil Neb] 2.5 mg RESP TX BID Budesonide/Formoterol 160-4.5 [Symbicort 160-4.5] 2 puff INH BID Aspirin EC Tab 81 mg PO DAILY Levothyroxine Tab [Synthroid Tab] 100 mcg PO DAILY@0700 Montelukast Tab [Singulair Tab] 10 mg PO DAILY Multivitamin [Multivitamins] 1 each PO DAILY Citalopram [CeleXA] 40 mg PO BID Trihexyphenidyl [Artane] 2 mg PO TID - Follow Up or Referral - Forms/Instructions Exam - Constitutional Vitals: Period Temp Pulse Resp BP Sys/Nunn Pulse Ox Last 24 Hr 96.9 F-98.4 F 54-65 16-20 122-164/59-76 94-99 Discharge Results Procedures and tests throughout hospitalization: Pending Orders 06/11/16 06:11 Prothrombin Time INR Stat DS: Provider Date of admission: 06/06/16 11:42 Primary care physician: Leonel Vieira, Attending physician on admission: Kalpana Mckeon MD Consults: 06/06/16 12:16 Consult to Case Mgmt/Social Srvs [CONS] Routine Reason for Case Mgmt/Social Srvs: Discharge Planning 06/06/16 12:21 Consult to Pharmacy [CONS] Routine Reason for Pharmacy Consult: Adjust Meds Renal Funct 06/07/16 11:16 Consult to Case Mgmt/Social Srvs [CONS] Routine Reason for Case Mgmt/Social Srvs: Equipment Consult Comment: Wheelchair for home use 06/10/16 11:40 Consult to Physician [CONS] Routine Comment: peg tube placement, weight loss and dehydration Consulting Provider: Leonel Falcon Consulting Provider Notified: Yes When should Consulting Provider be notified: Now Consult to Specialist Group: Gastroenterology When should Consulting Provider be notified: Now Person Notified: ELIZABETH Date Notified: 06/10/16 Time Notified: 12:21 06/10/16 17:02 Consult to Occupational Therapy [CONS] Routine Reason for Occupational Therapy: Weakness Consult to Physical Therapy [CONS] Routine Reason for Physical Therapy: Weakness Discharging clinician: Arcelia Espinoza NP Expected date of discharge: 06/11/16
[2016-06-11] MEDS: LEVOTHYROXINE 100 MCG TABLET PO SCH ×3 (07:46→19:04)
[2016-06-11] MEDS: ALBUTEROL 2.5 MG/3 ML NEB RESP TX SCH ×2 (08:05→19:34)
[2016-06-11] MEDS: MULTIVITAMIN (CENTRUM) TABLET PO SCH ×2 (10:18→19:04)
[2016-06-11] MEDS: CYANOCOBALAMIN 500 MCG TABLET PO SCH ×2 (10:18→19:02)
[2016-06-11] MEDS: LACTOBACILLUS RHAMNOSUS GG CAPSULE PO SCH ×2 (10:18→19:04)
[2016-06-11] MEDS: PANTOPRAZOLE 40 MG TABLET PO SCH ×2 (10:18→19:04)
[2016-06-11] MEDS: MONTELUKAST 10 MG TABLET PO SCH ×2 (10:18→19:04)
[2016-06-11] MEDS: TRIHEXYPHENIDYL 2 MG PO SCH ×3 (10:18→22:07)
[2016-06-11] MEDS: CITALOPRAM 40 MG TABLET PO SCH ×2 (10:18→19:04)
[2016-06-11] MEDS: BENZTROPINE 1 MG TABLET PO SCH ×2 (10:18→18:56)
[2016-06-11] MEDS: BUDESONIDE/FORMOTEROL 160-4.5 INHALER 6 GM INH SCH ×2 (10:18→22:08)
[2016-06-11] MEDS: CHOLECALCIFEROL 1,000 UNIT TABLET PO SCH ×2 (10:19→18:56)
[2016-06-11] MEDS ORDERED: LIDOCAINE 2% 5 ML VIAL ONE (11:44)
[2016-06-11] MEDS ORDERED: PROPOFOL 200 MG/20 ML VIAL IV ONE (11:44)
--- NOTE | 2016-06-11 11:45 | History and Physical Update ---
History and Physical Update - Physical Exam Mental Status: alert and oriented Heart: regular rate and rhythm Lung: clear to auscultation Abdomen: within normal limits Vitals: within normal limits History and Physical Changes: 75-year-old male with neurologic decline related to cortico-basal degeneration is admitted with recent dehydration and protein calorie malnutrition. He has not been eating well due to poor appetite and also some difficulty swallowing solids and liquids.
--- NOTE | 2016-06-11 12:01 | Operative Note ---
Date of procedure: 06/11/16 Pre-op diagnosis: Inability to eat with progressive neurologic disease Procedure: Procedure: Esophagogastroduodenoscopy with percutaneous endoscopic gastrostomy tube placement Brief clinical abstract: Patient is a 75-year-old male with progressive neurologic deterioration related to cortical basal degeneration. He has not been able to eat and has evidence of protein calorie malnutrition. He does complain of dysphagia to both solids and liquids. Indication for procedure: Inability to eat, protein calorie malnutrition Endoscopic findings: [After informed consent was obtained, the patient was placed in the left lateral decubitus position. The gastroscope was inserted in the upper esophagus under direct vision with no resistance encountered. Esophageal mucosa was notable for scattered areas of yellowish white exudate consistent with candidiasis to a moderate degree. Squamocolumnar junction was sharply demarcated at the diaphragmatic indentation. The endoscope was advanced in the stomach which was carefully examined including retroflexed view of the cardia and fundus. No significant mucosal abnormalities were seen. The pyloric channel, duodenal bulb, second and third portion of the duodenum were normal. The endoscope was withdrawn back into the stomach. Site for gastrostomy tube placement was selected using external indentation and endoscopic transillumination. Sterile field was created over the anterior abdomen at the site right of midline. 5 cc 1% lidocaine was injected subcutaneously down to the gastric wall. An approximately 4-5 mm superficial transverse incision was made with scalpel. Cook 20 Kinyarwanda gastrostomy tube was placed with pull technique. External bumper was secured at the 2 cm yg on the tube at the level of the skin surface. Dressing was applied to the site afterwards. He appeared to tolerate the procedure well Impression: #1 esophageal candidiasis #2 status post successful PEG tube placement Recommendations: Dietary consult for tube feeding recommendations. Keep abdominal binder over PEG tube for 10 days. Start tube feedings tomorrow morning if stable. Anesthesia: MAC, local (1% lidocaine to PEG site) Surgeon / Physician: Leonel Falcon Estimated blood loss: minimal Specimens: none sent Condition: stable Disposition: post procedure unit Results - Labs CBC & BMP: 06/07/16 04:11 06/07/16 04:11 Discharge Plan - Discharge Medications No Action Pantoprazole Tab [Protonix Tab] 40 mg PO DAILY Benztropine Tab [Cogentin Tab] 1 mg PO BID Cholecalciferol [Vitamin D3] 1,000 unit PO DAILY Cyanocobalamin Tab [Vitamin B12 Tab] 1,000 mcg PO DAILY L.acidoph & Paracasei,B.lactis [Probiotic] 1 each PO DAILY guaiFENesin ER TAB [Mucinex] 600 mg PO DAILY Azithromycin 250 mg PO MOWEFR Albuterol Neb [Proventil Neb] 2.5 mg RESP TX BID Budesonide/Formoterol 160-4.5 [Symbicort 160-4.5] 2 puff INH BID Aspirin EC Tab 81 mg PO DAILY Levothyroxine Tab [Synthroid Tab] 100 mcg PO DAILY@0700 Montelukast Tab [Singulair Tab] 10 mg PO DAILY Multivitamin [Multivitamins] 1 each PO DAILY Citalopram [CeleXA] 40 mg PO BID Trihexyphenidyl [Artane] 2 mg PO TID - Follow Up or Referral - Forms/Instructions
--- NOTE | 2016-06-11 12:08 | Anesthesia ---
Anesthesia Post OP - Post Ansesthetic Evaluation Patient seen in post op: Yes Resp: within normal limits CV: within normal limits Mental: within normal limits Temp: within normal limits Etub-[id number]: within normal limits Nausea and Vomiting: within normal limits Pain: within normal limits
--- NOTE | 2016-06-11 15:37 | Hospitalist Progress Note ---
Assessment and Plan (1) Dysphagia Status: Acute Assessment and plan: peg tube today and home tomorrow, unable to tolerate oral feeding, losing weight and peg tube feeding will be the main source of nutrition Current Visit: Yes (2) Bronchiectasis Status: Acute Assessment and plan: stable and chronic Current Visit: No Qualifiers: Bronchiectasis type: with acute lower respiratory infection Qualified Code( s): J47.0 - Bronchiectasis with acute lower respiratory infection (3) Protein malnutrition Status: Acute Assessment and plan: peg tube today Current Visit: Yes (4) Constipation Status: Acute Assessment and plan: resolved Current Visit: Yes (5) Corticobasal degeneration Status: Acute Assessment and plan: resume asa in am Current Visit: Yes Hospitalist: Subjective Interval history: Patient will receive his PEG tube today and then will be discharged home tomorrow Exam - Constitutional Vitals: Period Temp Pulse Resp BP Sys/Nunn Pulse Ox Last 24 Hr 96.9 F-98.4 F 47-62 14-20 107-174/58-078 93-100 Exam: Heart Rate-[deepthi] Lungs-[CTAB] GI-[+bs soft, NT] Ext-[no edema] neuro motor 5/5 but weak, alert and oriented times 1 psych depressed mood and flat affect general no acute distress Results - Labs CBC & BMP: 06/07/16 04:11 06/07/16 04:11 Lab Results: I have reviewed the past 24 hour labs
[2016-06-11] MEDS: DOCUSATE SODIUM 100 MG CAPSULE PO PRN (19:04)
[2016-06-11] MEDS: ACETAMINOPHEN 325 MG TABLET PO PRN (20:15)
[2016-06-12] MEDS: SODIUM CHLORIDE 0.45% 1,000 ML IV SCH ×2 (01:26→12:20)
[2016-06-12] MEDS: LEVOTHYROXINE 100 MCG TABLET PO SCH (07:30)
[2016-06-12] MEDS: ALBUTEROL 2.5 MG/3 ML NEB RESP TX SCH (07:34)
--- NOTE | 2016-06-12 09:25 | Discharge Summary ---
<Kalpana Madden N - Last Filed: 06/12/16 09:22> Hospital Course - Hospital Course Hospital Course: Mr. Lorenzo was admitted on 06/06 with constipation, protein malnutrition, hx of asthma and bronchiectasis, hypothyroidism, and Parkinson's disease. He was sent from Dr. Andrey Vieira's office for dehydration and constipation. He has corticobasal degeneration and he is managed by a Physician at [facility] and by Dr. Almodovar. He was having difficulty swallowing and we asked that Speech see for diet consistency recommendations. PEG was discussed. He got enemas and had a BM following that. Dr. Aime Falcon saw in consultation on 06/10 for his dysphagia. Mr. Lorenzo and family agreed to PEG placement. He is for PEG placement today and hopeful discharge after that procedure. Mr. Lorenzo did well with his PEG placement yesterday. He is started on tube feeding today. He can be discharged to home. Please see discharge medication reconciliation for accurate medication list. Discharge Plan - Discharge Data Disposition: Disch To Home/Self Care - Discharge Medications New Fluconazole Liquid [Diflucan Liquid] 200 mg PO DAILY #1 bottle Continue Pantoprazole Tab [Protonix Tab] 40 mg PO DAILY Benztropine Tab [Cogentin Tab] 1 mg PO BID Cholecalciferol [Vitamin D3] 1,000 unit PO DAILY Cyanocobalamin Tab [Vitamin B12 Tab] 1,000 mcg PO DAILY L.acidoph & Paracasei,B.lactis [Probiotic] 1 each PO DAILY Albuterol Neb [Proventil Neb] 2.5 mg RESP TX BID Budesonide/Formoterol 160-4.5 [Symbicort 160-4.5] 2 puff INH BID Aspirin EC Tab 81 mg PO DAILY Levothyroxine Tab [Synthroid Tab] 100 mcg PO DAILY@0700 Montelukast Tab [Singulair Tab] 10 mg PO DAILY Multivitamin [Multivitamins] 1 each PO DAILY Citalopram [CeleXA] 40 mg PO BID #30 tablet Trihexyphenidyl [Artane] 2 mg PO TID Changed Azithromycin 6 ml PO MOWEFR #72 ml Discontinued guaiFENesin ER TAB [Mucinex] 600 mg PO DAILY - Follow Up or Referral Follow Up: Leonel Vieira MD [Primary Care Provider] - 2 Weeks Leonel Falcon MD [Physician] - 1 Month () - Forms/Instructions Exam - Constitutional Vitals: Period Temp Pulse Resp BP Sys/Nunn Pulse Ox Last 24 Hr 97.2 F-99.4 F 51-78 14-26 104-174/57-078 91-100 Discharge Results Procedures and tests throughout hospitalization: Pending Orders 06/13/16 04:00 Basic Metabolic Panel MOTH Magnesium MOTH Phosphorous MOTH Prealbumin MOTH 06/17/16 04:00 Basic Metabolic Panel MOTH Magnesium MOTH Phosphorous MOTH Prealbumin MOTH DS: Provider Date of admission: 06/06/16 11:42 Primary care physician: Leonel Vieira, Attending physician on admission: Kalpana Mckeon MD Consults: 06/06/16 12:16 Consult to Case Mgmt/Social Srvs [CONS] Routine Reason for Case Mgmt/Social Srvs: Discharge Planning 06/06/16 12:21 Consult to Pharmacy [CONS] Routine Reason for Pharmacy Consult: Adjust Meds Renal Funct 06/07/16 11:16 Consult to Case Mgmt/Social Srvs [CONS] Routine Reason for Case Mgmt/Social Srvs: Equipment Consult Comment: Wheelchair for home use 06/10/16 11:40 Consult to Physician [CONS] Routine Comment: peg tube placement, weight loss and dehydration Consulting Provider: Leonel Falcon Consulting Provider Notified: Yes When should Consulting Provider be notified: Now Consult to Specialist Group: Gastroenterology When should Consulting Provider be notified: Now Person Notified: ELIZABETH Date Notified: 06/10/16 Time Notified: 12:21 06/10/16 17:02 Consult to Occupational Therapy [CONS] Routine Reason for Occupational Therapy: Weakness Consult to Physical Therapy [CONS] Routine Reason for Physical Therapy: Weakness 06/11/16 09:49 Consult to Case Mgmt/Social Srvs [CONS] Routine Reason for Case Mgmt/Social Srvs: Equipment Consult Comment: Hospital bed to keep head of bed up due to tube feeding 06/11/16 12:19 Consult to Dietitian [CONS] Routine Reason for Dietitian: TF-Initiate/Manage 06/12/16 10:23 Consult to Case Mgmt/Social Srvs [CONS] Routine Reason for Case Mgmt/Social Srvs: Home Health Consult Comment: [facility] with RN and physical therapy Discharging clinician: MARQUISE Gunter Deanna R - Last Filed: 06/12/16 11:15> Hospital Course - Hospital Course Hospital Course: Patient seen and examined. Questions answered about PEG tube feeding. History and physical reviewed and added today as follows. Patient has done well after PEG tube placement and has not had minimal discomfort. On the EGD they did note he had Camila esophagitis and that will need to be treated with Diflucan. Patient will be discharged home today after seen by Dr. Falcon. Patient's will be educated on the use of the PEG tube. Tube feeding is his only source of nutrition at this time and will continue to be mandatory until he is able to eat again which may be never due to his disease. - Time spent with patient Time with patient DS: Greater than 30 minutes Diagnosis - Discharge Diagnosis (1) Dysphagia Status: Acute (2) Bronchiectasis Status: Acute (3) Protein malnutrition Status: Acute (4) Constipation Status: Acute (5) Corticobasal degeneration Status: Acute Discharge Plan - Discharge Data Condition at Discharge: Stable Discharge Diet: other (1 can 3 times a day Jevity 8 ounces. 90 mL's before and after each can for 10 days then increase by 1 can every 7 days until goal of 6 cans per day is achieved. Double provide 1800 kcal and 2292 mL's of free fluid. Would recommend doing 60 mL's of water before and after each med.) Activity: resume usual activities as tolerated, as per physical therapy Exam - Constitutional General appearance: no acute distress, under weight - Respiratory Respiratory exam: Present: clear to auscultation bilaterally - Cardiovascular Cardiovascular exam: Present: regular rate and rhythm - GI/Abdominal GI/Abdominal exam: Present: normal bowel sounds, soft
--- NOTE | 2016-06-12 09:28 | Gastrointestinal Progress Note ---
Assessment and Plan (1) Dysphagia Status: Acute Assessment and plan: 06/11-Post PEG placement, tolerated well. To be discharged home today tentatively , however Dr Falcon to see prior to discharge. Will start Diflucan for jacob. Plan and addendum to follow by Dr Falcon. 06/10-Hx of difficulty swallowing with dilation in past, hx of Nisen fundopilication. Now with 40 pd wt loss over last year and a half with difficulty with meats, some solids and at times liquids, pills. Discussed PEG tube placement and questions answered. Family and pt to discuss further. Plan and addendum to follow by Dr Falcon. Current Visit: Yes Gastroenterology - PN: Subj Interval history: CC: Inability to eat Pt is seen, sitting up in bed, with at side. States that he is not feeling well today due to complaints of a sore throat. He did not rest well last night. Also having some mild soreness at PEG site. No redness or drainage noted. Abd binder intact. He has not started tube feedings as of yet however family is at bedside to be instructed by nursing staff. He is also to have possible home health to assist in this. Discussed EGD findings with family and he does have some esophageal candidiasis. Will start some diflucan for this. Also instructed to keep abdominal binder on for 10 days. Abdomen is soft, mild tenderness. ROS: Denies SOB or chest pain Exam (Progress Note) - Constitutional Vitals: Period Temp Pulse Resp BP Sys/Nunn Pulse Ox Last 24 Hr 97.2 F-99.4 F 51-78 14-26 104-174/57-078 91-100 General appearance: normal weight, no acute distress - Head Head exam: Present: normal inspection, normocephalic - Eye Eye exam: Present: other (lids and conjunctiva unremarkable). Absent: scleral icterus - ENT ENT exam: Present: normal exam, normal oropharynx - Neck Neck exam: Present: normal inspection - Respiratory Respiratory exam: Present: clear to auscultation bilaterally. Absent: rales, rhonchi, wheezes - Cardiovascular Cardiovascular exam: Present: regular rate and rhythm. Absent: diastolic murmur , JVD, systolic murmur - GI/Abdominal GI/Abdominal exam: Present: normal bowel sounds, tenderness, soft. Absent: ascites, distended, mass, organomegaly - Extremities Exam Extremities exam: Present: normal inspection, full ROM - Back Exam Back exam: Present: normal inspection - Neurological Exam Neurological exam: Present: alert, oriented X3 - Psychiatric Psychiatric exam: Present: flat affect - Skin Skin exam: Present: normal color, warm, dry Results - Labs CBC & BMP: 06/07/16 04:11 06/07/16 04:11 Lab Results: I have reviewed the past 24 hour labs
[2016-06-12] MEDS: LACTOBACILLUS RHAMNOSUS GG CAPSULE PO SCH (11:13)
[2016-06-12] MEDS: CYANOCOBALAMIN 500 MCG TABLET PO SCH (11:13)
[2016-06-12] MEDS: BENZTROPINE 1 MG TABLET PO SCH (11:14)
[2016-06-12] MEDS: PANTOPRAZOLE 40 MG TABLET PO SCH (11:14)
[2016-06-12] MEDS: DOCUSATE SODIUM 100 MG CAPSULE PO PRN (11:21)
[2016-06-12] MEDS: MULTIVITAMIN (CENTRUM) TABLET PO SCH (11:21)
[2016-06-12] MEDS: AZITHROMYCIN 250 MG TABLET PO SCH (11:22)
[2016-06-12] MEDS: CITALOPRAM 40 MG TABLET PO SCH (11:22)
[2016-06-12] MEDS: ACETAMINOPHEN 325 MG TABLET PO PRN (11:22)
[2016-06-12] MEDS: MONTELUKAST 10 MG TABLET PO SCH (11:22)
[2016-06-12] MEDS: CHOLECALCIFEROL 1,000 UNIT TABLET PO SCH (11:22)
[2016-06-12] MEDS: BUDESONIDE/FORMOTEROL 160-4.5 INHALER 6 GM INH SCH (11:24)
[2016-06-12] MEDS: TRIHEXYPHENIDYL 2 MG PO SCH ×2 (11:25→16:20)
[2016-06-12 15:40] VITALS: BP 106/56
== END 2016-06-12 17:20 | disposition home health service (06) | DRG 640 ==
LOC: N.ED 09:33 → N.EDINP 11:42 → N.4E 12:36
PROVIDERS: ADMIT Internal Medicine; ATTEND Internal Medicine
PROC: EGDWPEG (ICD-10-PCS; 2016-06-11 11:20)